=== PATIENT | female | born 1990 | race Caucasian/White ===

== ENCOUNTER 2016-11-01 00:46 | Emergency (ER) | payer OTHER ==
[2016-11-01 01:40] LABS: URINE BILIRUBIN 3+ (NEGATIVE); URINE BLOOD TRACE (NEGATIVE); URINE GLUCOSE (UA) NORMAL (NORMAL); URINE KETONE NEGATIVE (NEGATIVE); URINE LEUKOCYTE ESTERASE NEGATIVE (NEGATIVE); URINE NITRATE POSITIVE (NEGATIVE); URINE PROTEIN 1+ (NEGATIVE)
[2016-11-01 01:44] LABS: URINE BACTERIA 2+ (NONE SEEN); URINE WBC 0-5 /[HPF] (0-5)
== END 2016-11-01 02:35 | disposition home or self-care (01) ==
LOC: ER 00:46
PROVIDERS: General Practice
DX: N39.0 Urinary tract infection, site not specified (principal); R30.0 Dysuria; R31.9 Hematuria, unspecified; Z87.440 Personal history of urinary (tract) infections; Z88.1 Allergy status to other antibiotic agents
CPT/HCPCS: 81001; 81025; 96372; 99283-25